=== PATIENT | male | born 1990 | race Caucasian/White ===

== ENCOUNTER → 2017-07-03 | Outpatient (CLI) | payer OTHER ==
[~2017-07-03] MED LIST: ATARAX,VISTARIL50 MG PO; BACTRIM DS 8001 TA1 PO; CARBIDOPA/LEVOD1 TA1 PO; EFFEXOR XR75 M1 PO; HYDROCODONE BIT1 T11 PO; LIDEX 0.05% CRE15 GM T; METHOCARBAMOL750 M1 PO; PRILOSEC20 MG PO; QUETIAPINE FUMA25 MG PO; ZANTAC 150150 MG PO; ZOFRAN 4 MG ED2 TAB PO; ZOFRAN ODT4 MG SL
== END | disposition home or self-care (01) ==
LOC: RAD 15:07
DX: M79.671 Pain in right foot (principal)

== ENCOUNTER 2017-11-03 07:09 | Emergency (ER) | payer OTHER ==
[~2017-11-03] VITALS: Ht 182.8 cm; Wt 99.8 kg
[2017-11-03 07:51] LABS: BASO % 0.6 % (0.0-1.0); EOS # 0.2 10*3/uL (0.0-0.4); EOS % 3.1 % (1.0-4.0); HEMATOCRIT 42.7 % (42.0-52.0); HEMOGLOBIN 14.8 g/dl (14.0-18.0); LYMPH # 1.8 10*3/uL (1.3-4.4); MEAN CELL VOLUME 93.4 fl (80.0-94.0); MEAN CORPUSCULAR HGB 32.4 pg (27.0-31.0); MEAN CORPUSCULAR HGB CONC 34.7 g/dl (33.0-37.0); MONO # 0.5 10*3/uL (0.1-1.0); MONO % 6.7 % (3.0-9.0); NEUT # 4.6 10*3/uL (2.3-7.9); NEUT % 64.3 % (47.0-73.0); PLATELET COUNT AUTOMATED 169 10*3/uL (130-400); RED BLOOD COUNT 4.57 10*6/uL (4.50-5.90); RED CELL DISTRI WIDTH 11.8 % (0-14.5); WHITE BLOOD COUNT 7.2 10*3/uL (4.8-10.8)
[2017-11-03 08:05] LABS: ALBUMIN 3.9 gm/dl (3.1-4.5); ALKALINE PHOSPHATASE 83 U/L (45-117); BUN 15 mg/dl (7-24); CHLORIDE 106 mmol/L (98-107); CREATININE 0.89 mg/dL (0.70-1.30); LIPASE 63 U/L (73-393); POTASSIUM 4.3 mmol/L (3.5-5.1); SGOT/AST 35 IU/L (3-35); SGPT/ALT 90 U/L (12-78); SODIUM 141 mmol/L (136-145); TOTAL PROTEIN 6.9 gm/dL (6.4-8.2)
[2017-11-03] MEDS ORDERED: Zofran4 MG SL (08:17)
== END 2017-11-03 08:36 | disposition home or self-care (01) ==
LOC: ED 07:09
PROVIDERS: Student in an Organized Health Care Education/Training Program
DX: R11.2 Nausea with vomiting, unspecified (principal); R19.7 Diarrhea, unspecified; F41.9 Anxiety disorder, unspecified; F10.10 Alcohol abuse, uncomplicated; Z90.89 Acquired absence of other organs; Z79.899 Other long term (current) drug therapy

== ENCOUNTER 2017-12-24 12:20 | Emergency (ER) | payer OTHER ==
[~2017-12-24] VITALS: Ht 182.8 cm; Wt 99.8 kg
[~2017-12-24 12:20] MED LIST changes: +Zofran4 MG SL
== END 2017-12-24 12:36 | disposition home or self-care (01) ==
LOC: ED 12:20
DX: L91.8 Other hypertrophic disorders of the skin (principal); R23.3 Spontaneous ecchymoses

== ENCOUNTER 2018-09-07 17:04 | Emergency (ER) | payer OTHER ==
[~2018-09-07] VITALS: Ht 182.8 cm; Wt 99.8 kg
== END 2018-09-07 17:42 | disposition home or self-care (01) ==
LOC: ED 17:04
DX: N48.89 Other specified disorders of penis (principal); L98.9 Disorder of the skin and subcutaneous tissue, unspecified; F17.200 Nicotine dependence, unspecified, uncomplicated

== ENCOUNTER 2019-01-28 11:42 | Inpatient (IN) | payer OTHER ==
[~2019-01-28] VITALS: Ht 182.8 cm; Wt 99.3 kg
[2019-01-28 11:43] VITALS: BP 131/80
[2019-01-28 12:47] LABS: BASO # 0.1 10*3/uL (0.0-0.1); BASO % 1.1 % (0.0-1.0); EOS # 0.3 10*3/uL (0.0-0.4); EOS % 4.8 % (1.0-4.0); HEMATOCRIT 43.5 % (42.0-52.0); HEMOGLOBIN 14.9 g/dl (14.0-18.0); LYMPH # 1.7 10*3/uL (1.3-4.4); LYMPH % 26.3 % (27.0-41.0); MEAN CELL VOLUME 95.2 fl (80.0-94.0); MEAN CORPUSCULAR HGB 32.6 pg (27.0-31.0); MEAN CORPUSCULAR HGB CONC 34.3 g/dl (33.0-37.0); MEAN PLATELET VOLUME 10.4 fl (9.6-12.3); MONO # 0.4 10*3/uL (0.1-1.0); MONO % 6.8 % (3.0-9.0); NEUT # 3.9 10*3/uL (2.3-7.9); NEUT % 60.5 % (47.0-73.0); PLATELET COUNT AUTOMATED 188 10*3/uL (130-400); RED BLOOD COUNT 4.57 10*6/uL (4.50-5.90); RED CELL DISTRI WIDTH 11.9 % (0-14.5); WHITE BLOOD COUNT 6.5 10*3/uL (4.8-10.8)
[2019-01-28 12:50] LABS: BILIRUBIN NEGATIVE (NEGATIVE); BLOOD NEGATIVE (NEGATIVE); CLARITY CLEAR (CLEAR); COLOR YELLOW (YELLOW); GLUCOSE NEGATIVE (NEGATIVE); KETONE NEGATIVE (NEGATIVE); LEUKO ESTERASE NEGATIVE (NEGATIVE); NITRITE NEGATIVE (NEGATIVE); UROBILINOGEN 0.2 E.U./dl (0.2-1.0)
[2019-01-28 13:02] LABS: URINE AMPHETAMINES < 1000 (1000ng/ml); URINE BARBITURATES < 200 (200ng/ml); URINE BENZODIAZEPINES > 200 (200ng/ml); URINE CANNABINOIDS (THC) > 50 (50ng/ml); URINE COCAINE < 300 (300ng/ml); URINE METHADONE < 300 (300ng/ml); URINE OPIATES < 300 (300ng/ml)
[2019-01-28 13:04] LABS: URINE PHENCYCLIDINE < 25 (25ng/ml)
[2019-01-28 13:04] LABS: ALBUMIN 3.9 gm/dl (3.1-4.5); ALKALINE PHOSPHATASE 93 U/L (45-117); BUN 8 mg/dl (7-24); CHLORIDE 108 mmol/L (98-107); CREATININE 0.82 mg/dL (0.70-1.30); LIPASE 50 U/L (73-393); POTASSIUM 4.3 mmol/L (3.5-5.1); SGOT/AST 38 IU/L (3-35); SGPT/ALT 80 U/L (12-78); SODIUM 140 mmol/L (136-145); TOTAL PROTEIN 7.3 gm/dL (6.4-8.2)
[2019-01-28 13:09] LABS: ACETAMINOPHEN (TYLENOL) < 5.0 ug/ml (10-30); ETHYL ALCOHOL < 3.0 mg/dl (<3); TROPONIN I < 0.015 ng/ml (<0.045)
[2019-01-28 13:09] LABS: BACTERIA TRACE; EPITHELIAL CELLS 0-2
[2019-01-28 14:21] LABS: INTERNATIONAL NORM RATIO 0.9 (2.0-3.5)
[2019-01-28 16:00] VITALS: BP 133/71
[2019-01-28 20:00] VITALS: BP 111/61
[2019-01-29] VITALS: BP 113/61
[2019-01-29 08:00] VITALS: BP 122/70
[2019-01-29 12:00] VITALS: BP 129/75
== END 2019-01-29 14:30 | disposition left against medical advice (07) | DRG 894 ==
LOC: ED 11:42 → EDHOLD 13:49 → 5E 13:49
PROVIDERS: Physician Assistant; Student in an Organized Health Care Education/Training Program; ADMIT Internal Medicine
DX: F11.23 Opioid dependence with withdrawal (principal); T22.112A Burn of first degree of left forearm, initial encounter; E87.8 Other disorders of electrolyte and fluid balance, not elsewhere classified; F41.9 Anxiety disorder, unspecified; F19.10 Other psychoactive substance abuse, uncomplicated; D75.89 Other specified diseases of blood and blood-forming organs; R74.0 Nonspecific elevation of levels of transaminase and lactic acid dehydrogenase [LDH]; F13.10 Sedative, hypnotic or anxiolytic abuse, uncomplicated; F12.90 Cannabis use, unspecified, uncomplicated; F90.9 Attention-deficit hyperactivity disorder, unspecified type; K29.50 Unspecified chronic gastritis without bleeding; E66.3 Overweight; F17.210 Nicotine dependence, cigarettes, uncomplicated; Z53.21 Procedure and treatment not carried out due to patient leaving prior to being seen by health care provider; Z79.899 Other long term (current) drug therapy; Z90.89 Acquired absence of other organs; Z82.49 Family history of ischemic heart disease and other diseases of the circulatory system; Z71.6 Tobacco abuse counseling; Z68.29 Body mass index [BMI] 29.0-29.9, adult; X58.XXXA Exposure to other specified factors, initial encounter; Y93.89 Activity, other specified; Y92.89 Other specified places as the place of occurrence of the external cause; Y99.8 Other external cause status

== ENCOUNTER 2019-10-11 22:01 | Emergency (ER) | payer OTHER ==
[~2019-10-11] VITALS: Ht 182.8 cm; Wt 99.8 kg
[2019-10-11 23:06] LABS: BASO % 0.5 % (0.0-1.0); EOS % 0.1 % (1.0-4.0); HEMATOCRIT 43.3 % (42.0-52.0); LYMPH # 1.4 10*3/uL (1.3-4.4); LYMPH % 17.2 % (27.0-41.0); MEAN CELL VOLUME 91.5 fl (80.0-94.0); MEAN CORPUSCULAR HGB 31.7 pg (27.0-31.0); MEAN CORPUSCULAR HGB CONC 34.6 g/dl (33.0-37.0); MONO # 0.5 10*3/uL (0.1-1.0); MONO % 5.5 % (3.0-9.0); NEUT # 6.3 10*3/uL (2.3-7.9); NEUT % 76.5 % (47.0-73.0); PLATELET COUNT AUTOMATED 208 10*3/uL (130-400); RED BLOOD COUNT 4.73 10*6/uL (4.50-5.90); WHITE BLOOD COUNT 8.2 10*3/uL (4.8-10.8)
[2019-10-11 23:23] LABS: ALBUMIN 4.1 gm/dl (3.1-4.5); ALKALINE PHOSPHATASE 87 U/L (45-117); BUN 12 mg/dl (7-24); CHLORIDE 109 mmol/L (98-107); CREATININE 0.89 mg/dL (0.70-1.30); POTASSIUM 3.9 mmol/L (3.5-5.1); SGOT/AST 16 IU/L (3-35); SGPT/ALT 38 U/L (12-78); SODIUM 139 mmol/L (136-145); TOTAL PROTEIN 7.7 gm/dL (6.4-8.2)
[2019-10-11 23:27] LABS: ACETAMINOPHEN (TYLENOL) < 5.0 ug/ml (10-30); ACT PARTIAL THROMBO TIME 25.7 SECONDS (20.0-32.1); ETHYL ALCOHOL < 3.0 mg/dl (<3); TROPONIN I < 0.015 ng/ml (<0.045)
[2019-10-12 01:05] LABS: BILIRUBIN NEGATIVE (NEGATIVE); CLARITY CLEAR (CLEAR); COLOR YELLOW (YELLOW); GLUCOSE NEGATIVE (NEGATIVE); KETONE NEGATIVE (NEGATIVE); SPECIFIC GRAVITY 1.005 (1.005-1.030)
[2019-10-12 01:06] LABS: BLOOD NEGATIVE (NEGATIVE); LEUKO ESTERASE NEGATIVE (NEGATIVE); NITRITE NEGATIVE (NEGATIVE); UROBILINOGEN 0.2 E.U./dl (0.2-1.0)
[2019-10-12 01:13] LABS: URINE AMPHETAMINES < 1000 (1000ng/ml); URINE BARBITURATES < 200 (200ng/ml); URINE BENZODIAZEPINES > 200 (200ng/ml); URINE CANNABINOIDS (THC) > 50 (50ng/ml); URINE COCAINE < 300 (300ng/ml); URINE METHADONE < 300 (300ng/ml); URINE OPIATES > 300 (300ng/ml)
[2019-10-12 01:22] LABS: BACTERIA 1+; EPITHELIAL CELLS 0-2; RBC 0-2 rbc/hpf (0-2)
[2019-10-12 01:23] LABS: URINE PHENCYCLIDINE < 25 (25ng/ml)
== END 2019-10-12 03:00 | disposition home or self-care (01) ==
LOC: ED 22:01
PROVIDERS: Emergency Medicine Emergency Medical Services
DX: F11.10 Opioid abuse, uncomplicated (principal); F14.10 Cocaine abuse, uncomplicated; F12.90 Cannabis use, unspecified, uncomplicated; F90.9 Attention-deficit hyperactivity disorder, unspecified type; F41.9 Anxiety disorder, unspecified; Z87.891 Personal history of nicotine dependence

== ENCOUNTER 2019-11-24 07:54 | Emergency (ER) | payer OTHER ==
[~2019-11-24] VITALS: Wt 99.8 kg
[2019-11-24 08:28] LABS: BASO # 0.1 10*3/uL (0.0-0.1); BASO % 1.3 % (0.0-1.0); EOS # 0.3 10*3/uL (0.0-0.4); EOS % 4.9 % (1.0-4.0); HEMATOCRIT 50.3 % (42.0-52.0); MEAN CELL VOLUME 95.6 fl (80.0-94.0); MEAN CORPUSCULAR HGB 33.3 pg (27.0-31.0); MEAN CORPUSCULAR HGB CONC 34.8 g/dl (33.0-37.0); MONO # 0.4 10*3/uL (0.1-1.0); MONO % 7.8 % (3.0-9.0); NEUT # 2.8 10*3/uL (2.3-7.9); NEUT % 49.6 % (47.0-73.0); PLATELET COUNT AUTOMATED 241 10*3/uL (130-400); RED BLOOD COUNT 5.26 10*6/uL (4.50-5.90); RED CELL DISTRI WIDTH 13.9 % (0-14.5); WHITE BLOOD COUNT 5.5 10*3/uL (4.8-10.8)
[2019-11-24 08:38] LABS: ACT PARTIAL THROMBO TIME 26.4 SECONDS (20.0-32.1)
[2019-11-24 08:59] LABS: ALBUMIN 4.2 gm/dl (3.1-4.5); ALKALINE PHOSPHATASE 111 U/L (45-117); BUN 10 mg/dl (7-24); CHLORIDE 109 mmol/L (98-107); CREATININE 1.09 mg/dL (0.70-1.30); LIPASE 65 U/L (73-393); POTASSIUM 3.8 mmol/L (3.5-5.1); SGOT/AST 17 IU/L (3-35); SGPT/ALT 42 U/L (12-78); SODIUM 139 mmol/L (136-145); TOTAL PROTEIN 7.8 gm/dL (6.4-8.2)
[2019-11-24 09:01] LABS: TROPONIN I < 0.015 ng/ml (<0.045)
== END 2019-11-24 10:25 | disposition home or self-care (01) ==
LOC: ED 07:54
PROVIDERS: Emergency Medicine
DX: R07.89 Other chest pain (principal); F17.200 Nicotine dependence, unspecified, uncomplicated

== ENCOUNTER 2019-12-31 16:10 | Emergency (ER) | payer OTHER ==
[2019-12-31] MEDS ORDERED: AUGMENTIN 875875 MG PO (18:05)
[2019-12-31] MEDS ORDERED: IBUPROFEN600 MG PO (18:05)
== END 2019-12-31 18:29 | disposition home or self-care (01) ==
LOC: ED 16:10
DX: J02.0 Streptococcal pharyngitis (principal)

== ENCOUNTER 2020-06-10 16:32 | Emergency (ER) | payer OTHER ==
[~2020-06-10] VITALS: Ht 182.8 cm; Wt 90.7 kg
[~2020-06-10 16:32] MED LIST changes: +AUGMENTIN 875875 MG PO; +IBUPROFEN600 MG PO
[2020-06-10] MEDS ORDERED: CEPHALEXIN500 M1 PO (17:07)
== END 2020-06-10 20:00 | disposition home or self-care (01) ==
LOC: ED 16:32
DX: S00.93XA Contusion of unspecified part of head, initial encounter (principal); V89.2XXA Person injured in unspecified motor-vehicle accident, traffic, initial encounter; Y93.89 Activity, other specified; Y92.89 Other specified places as the place of occurrence of the external cause; Y99.8 Other external cause status

== ENCOUNTER 2020-08-15 16:17 | Emergency (ER) | payer OTHER ==
[~2020-08-15] VITALS: Wt 102.1 kg
[~2020-08-15 16:17] MED LIST changes: +CEPHALEXIN500 M1 PO
[2020-08-15] MEDS ORDERED: PREDNISONE50 MG PO (17:05)
== END 2020-08-15 17:16 | disposition home or self-care (01) ==
LOC: ED 16:17
DX: M77.8 Other enthesopathies, not elsewhere classified (principal); M25.531 Pain in right wrist; M25.532 Pain in left wrist; Z79.899 Other long term (current) drug therapy; Z79.2 Long term (current) use of antibiotics; Z90.89 Acquired absence of other organs; Z96.22 Myringotomy tube(s) status; Z98.890 Other specified postprocedural states; Z87.891 Personal history of nicotine dependence

== ENCOUNTER 2020-12-13 16:30 | Emergency (ER) | payer OTHER ==
[~2020-12-13] VITALS: Ht 182.8 cm; Wt 99.8 kg
[~2020-12-13 16:30] MED LIST changes: +PREDNISONE50 MG PO
[2020-12-13] MEDS ORDERED: MEDROL DOSEPAK4 MG PO (18:38)
[2020-12-13] MEDS ORDERED: CYCLOBENZAPRINE5 M3 PO (18:38)
[2020-12-13] MEDS ORDERED: Motrin,Rufen800 MG PO (18:38)
== END 2020-12-13 18:45 | disposition home or self-care (01) ==
LOC: ED 16:30
DX: M54.16 Radiculopathy, lumbar region (principal); F17.200 Nicotine dependence, unspecified, uncomplicated; Z79.899 Other long term (current) drug therapy; Z79.2 Long term (current) use of antibiotics; Z98.890 Other specified postprocedural states; Z90.89 Acquired absence of other organs; Z96.22 Myringotomy tube(s) status

== ENCOUNTER 2020-12-30 13:16 | Emergency (ER) | payer OTHER ==
[~2020-12-30] VITALS: Ht 182.8 cm; Wt 99.8 kg
[~2020-12-30 13:16] MED LIST changes: +CYCLOBENZAPRINE5 M3 PO; +MEDROL DOSEPAK4 MG PO; +Motrin,Rufen800 MG PO
[2020-12-30] MEDS ORDERED: NAPROSYN500 MG PO (16:59)
[2020-12-30] MEDS ORDERED: CYCLOBENZAPRINE5 M3 PO (16:59)
== END 2020-12-30 17:02 | disposition home or self-care (01) ==
LOC: ED 13:16
DX: M54.16 Radiculopathy, lumbar region (principal); F17.200 Nicotine dependence, unspecified, uncomplicated; Z79.2 Long term (current) use of antibiotics; Z79.899 Other long term (current) drug therapy; Z90.89 Acquired absence of other organs; Z98.890 Other specified postprocedural states; Z96.22 Myringotomy tube(s) status

== ENCOUNTER 2021-03-31 16:24 | Emergency (ER) | payer OTHER ==
[~2021-03-31] VITALS: Wt 104.3 kg
[~2021-03-31 16:24] MED LIST changes: +NAPROSYN500 MG PO
[2021-03-31] MEDS ORDERED: VALTREX1000 MG PO (16:58)
[2021-03-31] MEDS ORDERED: VIBRAMYCIN100 MG PO (17:03)
[2021-03-31 17:32] LABS: BILIRUBIN Negative (Negative); BLOOD Negative (Negative); CLARITY Clear (Clear); COLOR Yellow (Yellow); GLUCOSE Negative (Negative); KETONE Negative (Negative); LEUKO ESTERASE Negative (Negative); NITRITE Negative (Negative); PH 5.5 (4.5-8.0); UROBILINOGEN 0.2 E.U./dl (0.0-1.0)
[2021-03-31 17:58] LABS: BACTERIA TRACE; EPITHELIAL CELLS 0-2; RBC 0-2 rbc/hpf (0-2); WBC 0-2 wbc/hpf (0-5)
== END 2021-03-31 17:23 | disposition home or self-care (01) ==
LOC: ED 16:24
PROVIDERS: Emergency Medicine
DX: A64 Unspecified sexually transmitted disease (principal); B07.9 Viral wart, unspecified; A60.00 Herpesviral infection of urogenital system, unspecified; F11.90 Opioid use, unspecified, uncomplicated

== ENCOUNTER 2021-08-15 16:54 | Emergency (ER) | payer OTHER ==
[~2021-08-15 16:54] MED LIST changes: +VALTREX1000 MG PO; +VIBRAMYCIN100 MG PO
[2021-08-15] MEDS ORDERED: ZOFRAN4 MG PO (18:59)
== END 2021-08-15 19:06 | disposition home or self-care (01) ==
LOC: ED 16:54
DX: K52.9 Noninfective gastroenteritis and colitis, unspecified (principal); Z90.89 Acquired absence of other organs; Z98.890 Other specified postprocedural states; Z87.891 Personal history of nicotine dependence

== ENCOUNTER 2021-09-19 21:56 | Emergency (ER) | payer OTHER ==
[~2021-09-19 21:56] MED LIST changes: +ZOFRAN4 MG PO
== END 2021-09-19 22:35 | disposition home or self-care (01) ==
LOC: ED 21:56
DX: F11.23 Opioid dependence with withdrawal (principal); Z87.891 Personal history of nicotine dependence; Z90.89 Acquired absence of other organs; Z98.890 Other specified postprocedural states

== ENCOUNTER 2022-02-27 21:27 | Emergency (ER) | payer OTHER ==
[~2022-02-27] VITALS: Ht 182.8 cm; Wt 104.3 kg
[2022-02-28] MEDS ORDERED: NAPROSYN500 MG PO (00:48)
== END 2022-02-28 00:58 | disposition home or self-care (01) ==
LOC: ED 21:27
DX: M79.671 Pain in right foot (principal); F17.200 Nicotine dependence, unspecified, uncomplicated; F12.90 Cannabis use, unspecified, uncomplicated; Z90.89 Acquired absence of other organs; Z79.899 Other long term (current) drug therapy; X50.1XXA Overexertion from prolonged static or awkward postures, initial encounter; Y93.39 Activity, other involving climbing, rappelling and jumping off; Y92.89 Other specified places as the place of occurrence of the external cause; Y99.9 Unspecified external cause status

== ENCOUNTER → 2022-03-06 | Outpatient (CLI) | payer OTHER ==
[2022-03-06 09:00] LABS: HEMATOCRIT 47.6 % (42.0-52.0); MEAN CELL VOLUME 93.3 fl (80.0-94.0); MEAN CORPUSCULAR HGB 32.5 pg (27.0-31.0); MEAN CORPUSCULAR HGB CONC 34.9 g/dl (33.0-37.0); MEAN PLATELET VOLUME 10.1 fl (9.6-12.3); RED BLOOD COUNT 5.1 10*6/uL (4.50-5.90); RED CELL DISTRI WIDTH 12.5 % (0-14.5); WHITE BLOOD COUNT 6.9 10*3/uL (4.8-10.8)
[2022-03-06 09:17] LABS: BUN 11 mg/dl (7-24); CHLORIDE 109 mmol/L (98-107); CHOLESTEROL 207 mg/dL (<200); POTASSIUM 4.1 mmol/L (3.5-5.1); SGOT/AST 13 IU/L (3-35); SGPT/ALT 24 U/L (12-78); SODIUM 139 mmol/L (136-145); TRIGLYCERIDES 138 mg/dl (<150)
[2022-03-06 09:22] LABS: ALKALINE PHOSPHATASE 107 U/L (45-117); FREE T4 0.89 ng/dl (0.76-1.46); LDL CHOLESTEROL 143 mg/dL (9-159); TOTAL PROTEIN 7.7 gm/dL (6.4-8.2)
[2022-03-06 10:26] LABS: VITAMIN D, 25-HYDROXY 26.5 ng/mL (30-100)
== END ==
LOC: LAB 08:26
PROVIDERS: ATTEND Family Medicine
DX: Z00.00 Encounter for general adult medical examination without abnormal findings (principal); M25.571 Pain in right ankle and joints of right foot; M79.89 Other specified soft tissue disorders; E55.9 Vitamin D deficiency, unspecified; R53.83 Other fatigue

== ENCOUNTER → 2022-11-29 | Outpatient (CLI) | payer OTHER ==
[~2022-11-29] MED LIST changes: +'CLONIDINE0.1 MG PO; +BUSPIRONE HCL10 MG PO; +LAMOTRIGINE100 MG PO; +PAROXETINE HCL20 MG PO; +QUETIAPINE FUMA50 M1 PO; +SEROQUEL50 MG PO; +TIZANIDINE HCL4 MG PO
[2022-11-29 12:29] LABS: HEMATOCRIT 46.3 % (42.0-52.0); MEAN CELL VOLUME 96.1 fl (80.0-94.0); MEAN CORPUSCULAR HGB 33.8 pg (27.0-31.0); MEAN CORPUSCULAR HGB CONC 35.2 g/dl (33.0-37.0); MEAN PLATELET VOLUME 10.3 fl (9.6-12.3); RED BLOOD COUNT 4.82 10*6/uL (4.50-5.90); RED CELL DISTRI WIDTH 11.9 % (0-14.5); WHITE BLOOD COUNT 5.6 10*3/uL (4.8-10.8)
[2022-11-29 13:02] LABS: ALKALINE PHOSPHATASE 85 U/L (46-116); BUN 8 mg/dl (9-23); CHLORIDE 110 mmol/L (98-107); CHOLESTEROL 125 mg/dL (<200); LDL CHOLESTEROL 55 mg/dL (9-159); POTASSIUM 4.1 mmol/L (3.4-5.1); SGPT/ALT 159 U/L (10-49); TOTAL PROTEIN 7.1 gm/dL (6.0-8.0); TRIGLYCERIDES 197 mg/dl (<150)
[2022-11-29 13:09] LABS: VITAMIN D, 25-HYDROXY 26.4 ng/mL (30-100)
[2022-11-30 07:07] LABS: HBSAG Negative (Negative); HEP B CORE AB, IGM Negative (Negative)
[2022-12-02 16:07] LABS: HCV LOG10 7.068 (.); HCV RNA INTERNATION UNITS 11700000 IU/mL (.); HEPATITIS C ANTIBODY Reactive (Non Reactive)
== END | disposition home or self-care (01) ==
LOC: LAB 11:56
PROVIDERS: ATTEND Family Medicine
DX: Z00.00 Encounter for general adult medical examination without abnormal findings (principal); Z13.220 Encounter for screening for lipoid disorders; R74.01 Elevation of levels of liver transaminase levels; R53.83 Other fatigue; Z79.899 Other long term (current) drug therapy

== ENCOUNTER → 2023-03-14 | Outpatient (CLI) | payer OTHER ==
[2023-03-14 16:49] LABS: HEMATOCRIT 50.8 % (42.0-52.0); MEAN CELL VOLUME 95.3 fl (80.0-94.0); MEAN CORPUSCULAR HGB 33.8 pg (27.0-31.0); MEAN CORPUSCULAR HGB CONC 35.4 g/dl (33.0-37.0); MEAN PLATELET VOLUME 10.6 fl (9.6-12.3); RED BLOOD COUNT 5.33 10*6/uL (4.50-5.90); RED CELL DISTRI WIDTH 12.4 % (0-14.5); WHITE BLOOD COUNT 7.3 10*3/uL (4.8-10.8)
[2023-03-14 17:12] LABS: ALKALINE PHOSPHATASE 78 U/L (46-116); BUN 12 mg/dl (9-23); CHLORIDE 106 mmol/L (98-107); CHOLESTEROL 145 mg/dL (<200); CPK 82 U/L (34-171); GAMMA GLUTAMYL TRANSPEPTIDASE 49 U/L (0-73); LDL CHOLESTEROL 86 mg/dL (9-159); POTASSIUM 4.3 mmol/L (3.4-5.1); SGPT/ALT 106 U/L (5-49); TOTAL PROTEIN 7.9 gm/dL (6.0-8.0); TRIGLYCERIDES 125 mg/dl (<150)
== END | disposition home or self-care (01) ==
LOC: LAB 16:08
PROVIDERS: ATTEND Family Medicine
DX: E55.9 Vitamin D deficiency, unspecified (principal); E78.00 Pure hypercholesterolemia, unspecified; E74.9 Disorder of carbohydrate metabolism, unspecified

== ENCOUNTER → 2023-05-25 | Outpatient (CLI) | payer OTHER ==
[2023-05-25 11:19] LABS: ALKALINE PHOSPHATASE 94 U/L (46-116); BUN 12 mg/dl (9-23); CHLORIDE 103 mmol/L (98-107); POTASSIUM 4.5 mmol/L (3.4-5.1); SGPT/ALT 115 U/L (5-49); TOTAL PROTEIN 8.6 gm/dL (6.0-8.0); URINE AMPHETAMINES Negative (1000ng/ml); URINE BARBITURATES Negative (200ng/ml); URINE BENZODIAZEPINES Negative (200ng/ml); URINE CANNABINOIDS (THC) Negative (50ng/ml); URINE COCAINE Positive (300ng/ml); URINE METHADONE Negative (300ng/ml); URINE OPIATES Positive (300ng/ml); URINE PHENCYCLIDINE Negative (25ng/ml)
[2023-05-26 07:27] LABS: HEPATITIS A AB, TOTAL Negative (Negative); HEPATITIS B SURFACE AB Reactive (.); HEPATITIS B SURFACE AG Negative (Negative)
[2023-05-26 20:20] LABS: HCV LOG10 7.462 (.); HEPATITIS C QNT See Final Results IU/mL (.)
== END | disposition home or self-care (01) ==
LOC: LAB 10:03
PROVIDERS: ATTEND Nurse Practitioner Family
DX: B19.20 Unspecified viral hepatitis C without hepatic coma (principal)

== ENCOUNTER 2023-08-15 12:34 | Emergency (ER) | payer OTHER ==
[~2023-08-15] VITALS: Ht 182.8 cm; Wt 102.1 kg
[2023-08-15] MEDS ORDERED: MIRTAZAPINE30 M2 PO (12:42)
[2023-08-15] MEDS ORDERED: Lidocaine Hydrochloride 2 ML AMP SC ONE (13:05)
[2023-08-15] MEDS ORDERED: ACETAMINOPHEN 325 MG TAB PO ONE (13:05)
== END 2023-08-15 14:23 | disposition home or self-care (01) ==
LOC: ED 12:34
DX: S61.214A Laceration without foreign body of right ring finger without damage to nail, initial encounter (principal); F12.90 Cannabis use, unspecified, uncomplicated; F17.200 Nicotine dependence, unspecified, uncomplicated; Z90.89 Acquired absence of other organs; Z98.890 Other specified postprocedural states; W45.0XXA Nail entering through skin, initial encounter; Y93.89 Activity, other specified; Y92.89 Other specified places as the place of occurrence of the external cause; Y99.8 Other external cause status

== ENCOUNTER → 2024-05-07 | Outpatient (CLI) | payer MEDICAID ==
[~2024-05-07] MED LIST changes: +MIRTAZAPINE30 M2 PO
[2024-05-07 07:22] LABS: HEMATOCRIT 48.9 % (42.0-52.0); MEAN CELL VOLUME 96.1 fl (80.0-94.0); MEAN CORPUSCULAR HGB 33.4 pg (27.0-31.0); MEAN CORPUSCULAR HGB CONC 34.8 g/dl (33.0-37.0); MEAN PLATELET VOLUME 10.3 fl (9.6-12.3); RED BLOOD COUNT 5.09 10*6/uL (4.50-5.90); RED CELL DISTRI WIDTH 12.2 % (0-14.5); WHITE BLOOD COUNT 7.9 10*3/uL (4.8-10.8)
[2024-05-07 08:07] LABS: ALKALINE PHOSPHATASE 104 U/L (46-116); BUN 13 mg/dl (9-23); CHLORIDE 108 mmol/L (98-107); POTASSIUM 4.3 mmol/L (3.4-5.1); SGPT/ALT 16 U/L (5-49); TOTAL PROTEIN 7.5 gm/dL (6.0-8.0)
[2024-05-08 05:06] LABS: HBsAG SCREEN Negative (Negative); HEP B CORE Ab, IgM Negative (Negative)
[2024-05-09 17:06] LABS: HEPATITIS C QUANTITATION HCV Not Detected IU/mL (.)
[2024-05-09 20:06] LABS: HCV Ab Reactive (Non Reactive)
== END | disposition home or self-care (01) ==
LOC: LAB 07:05
PROVIDERS: ATTEND Family Medicine
DX: B18.2 Chronic viral hepatitis C (principal)